=== PATIENT | female | born 1980 | race Caucasian/White ===

== ENCOUNTER 2019-02-02 12:31 | Emergency (ER) | payer OTHER, SELFPAY ==
[2019-02-02 12:40] VITALS: BP 140/97; PULSE 80; RESP 20; TEMP 36.7; O2SAT 93; BMI 58.8
--- NOTE | 2019-02-02 12:49 | ED.LOWEXIN ---
HPI - Extremity Injury (Lower) General Chief Complaint: Extremity Injury, Lower Stated Complaint: Thinks broke or twist left ankle Time Seen by Provider: 02/02/19 12:33 Source: patient and family Mode of arrival: Ambulatory Limitations: no limitations History of Present Illness HPI Narrative: 38-year-old female former smoker presents with friends and family in the chief complaint of a left ankle injury. She was walking last evening and missed a step and felt pain and swelling in her left ankle. She denies any head, neck or back pain. She has increased pain with ambulation and improvement with rest. She denies any numbness, tingling or weakness. MD complaint: ankle injury Onset (ago): hour(s) Type of Injury: inversion Place: home Severity: moderate Relieving factors: immobilization Exacerbating factors: weight bearing Context: walking Associated symptoms: snap/pop sensation, swelling and able to partially bear weight Other symptoms: none Treatments prior to arrival: cold therapy and bandage Related Data Previous Rx's Medication Instructions Recorded hydrocodone-acetaminophen 1 tab PO Q4-6H PRN #10 tab 02/02/19 Review of Systems Constitutional Constitutional: Denies chills, Denies fatigue, Denies fever(s), Denies frequent falls, Denies lethargy and Denies weakness Eyes Eyes: Denies change in vision, Denies eye discharge, Denies irritation and Denies loss of vision ENT Ears, Nose, Mouth, and Throat: Denies change in voice, Denies dizziness, Denies neck pain, Denies sore throat and Denies throat swelling Cardiovascular Cardiovascular: Denies chest pain, Denies irregular heart rhythm, Denies lightheadedness, Denies palpitations, Denies dyspnea, Denies dyspnea on exertion and Denies orthopnea Respiratory Respiratory: Denies cough, Denies dyspnea, Denies dyspnea on exertion and Denies wheezing Gastrointestinal Gastrointestinal: Denies abdominal pain, Denies change in bowel habits, Denies diarrhea, Denies nausea and Denies vomiting Genitourinary Genitourinary: Denies hematuria, Denies flank pain, Denies urinary incontinence and Denies urinary urgency Musculoskeletal Musculoskeletal: Denies back pain, Reports joint swelling, Reports limited range of motion, Denies muscle weakness, Denies neck pain, Denies numbness and Denies tingling Integumentary/Breasts Skin/Breast: Denies pruritus, Denies erythema, Denies rash and Denies wounds Neurologic Neurologic: Denies behavioral changes, Denies confusion, Denies dizziness, Denies frequent falls, Denies loss of vision, Denies numbness, Denies tingling and Denies weakness Psychiatric Psychiatric: Denies anxiety, Denies behavioral changes, Denies confusion, Denies depression, Denies homicidal ideation and Denies suicidal ideation Endocrine Endocrine: Denies fatigue, Denies flushing and Denies palpitations Hematologic/Lymphatic Hematologic/Lymphatic: Denies easy bruising Allergic/Immunologic Allergic/Immunologic: Denies urticaria, Denies throat swelling and Denies wheezing PFSH Social History Smoking Status: Never smoker Social History Smoking Status: Never smoker Exam Narrative Exam Narrative: GEN: AOx3 and in mild distress EYES: Pupils are equal, round, and reactive to light and accommodation. Extraoccular muscles are intact bilaterally. There is no subconjunctival hemorrhage or exudate. CHEST: Lungs are clear to auscultation bilaterally and free of wheezes, rales, or rhonchi. Heart rate is regular rhythm, there are no murmurs, clicks, rubs, or gallops. There is no chest wall tenderness. ABD: Abdomen is soft and nontender. There is no guarding or rebound. Bowel sounds are normal in all 4 quadrants. There is no mass or organomegaly. EXT: Full but painful range of motion of the left ankle with some swelling and tenderness to palpation over the lateral malleolus. No ligamentous laxity noted. Dorsalis pedis intact, cap refill intact, sensation intact SKIN: Warm, pink, and dry. No erythema or rash Initial Vital Signs Initial Vital Signs: Vital Signs Temperature 98.1 F 02/02/19 12:40 Pulse Rate 80 02/02/19 12:40 Respiratory Rate 20 02/02/19 12:40 Blood Pressure 140/97 H 02/02/19 12:40 Pulse Oximetry 93 02/02/19 12:40 Procedures Orthopedic Splinting/Casting Injury #1: Side: left Lower Extremity Injury Location: ankle Lower Extremity Immobilizer: posterior splint Other Orthopedic Equipment: crutches Post splinting neuro exam: intact Post splinting vascular exam: intact Placed by: Nursing Course Orders Ordered: ED Orders 02/02/19 13:15 XR ankle RT min 3V Stat Vital Signs Vital signs: Vital Signs - 8 hr 02/02/19 12:40 Temperature 98.1 F Pulse Rate 80 Pulse Rate [Left Dorsalis Pedis] 80 Respiratory Rate 20 Blood Pressure 140/97 H Pulse Oximetry 93 MDM - Extremity Injury (Lower) Imaging Data Ankle Xray: Radiologist's impression: Inocencia Maciel 38 F [address] [address] XRay Report Signed Patient: Inocencia Maciel MMR#: [id number] : 1980Acct:[id number] Age/Sex: 38 / FDate of Service: 02/02/19 Loc: ED Accession Number: [id number] Procedure: XR ankle RT min 3V Ordering Provider: Pradip Castlilo D.O. PROCEDURE: XR ANKLE RT MIN 3V INDICATIONS: twisted ankle pain with ambulation TECHNIQUE: 3 views of the ankle were acquired. COMPARISON: None. FINDINGS: Bones: No definite acute fractures or dislocations. There are small corticated ossicles inferior to the lateral malleolus compatible with prior avulsion fractures. Ankle mortise is normally aligned. No suspicious bony lesions. Soft tissues: No tibiotalar joint effusion. Achilles tendon appears intact. IMPRESSION: 1. No definite acute fracture or dislocation. Probable chronic avulsion fracture inferior to the lateral malleolus demonstrated. Dictated by: Srinivasa Galindo M.D. on 02/02/2019 at 12:44 Approved by: Srinivasa Galindo M.D. on 02/02/2019 at 12:46 Discharge Plan Departure Patient Disposition: Home Clinical Impression: Ankle sprain and strain Instructions: DI for Ankle Sprain Activity Restrictions/Additional Instructions: *You have been diagnosed with [ ankle sprain ] *What to do: *Take medications as directed *Follow up with your primary care provider in 2-3 days, call for an appointment. Let them know you were seen in the Emergency Department and that we ask that you be seen in follow up *Return to ER if you should have any new, worsening or concerning symptoms Prescriptions: New hydrocodone-acetaminophen 5-325 mg tablet 1 tab PO Q4-6H PRN (Reason: pain) Qty: 10 RF: 0
--- NOTE | 2019-02-02 13:15 | DI.RAD.S_ITS ---
PROCEDURE: XR ANKLE RT MIN 3V INDICATIONS: twisted ankle pain with ambulation TECHNIQUE: 3 views of the ankle were acquired. COMPARISON: None. FINDINGS: Bones: No definite acute fractures or dislocations. There are small corticated ossicles inferior to the lateral malleolus compatible with prior avulsion fractures. Ankle mortise is normally aligned. No suspicious bony lesions. Soft tissues: No tibiotalar joint effusion. Achilles tendon appears intact. IMPRESSION: 1. No definite acute fracture or dislocation. Probable chronic avulsion fracture inferior to the lateral malleolus demonstrated. Dictated by: Srinivasa Galindo M.D. on 02/02/2019 at 12:44 Approved by: Srinivasa Galindo M.D. on 02/02/2019 at 12:46
[2019-02-02 14:45] VITALS: BP 132/78; PULSE 66; RESP 18; O2SAT 100
== END 2019-02-02 14:51 | disposition home or self-care (01) ==
PROVIDERS: Emergency Provider Emergency Medicine
DX: S93.402A Sprain of unspecified ligament of left ankle, initial encounter (principal); S96.912A Strain of unspecified muscle and tendon at ankle and foot level, left foot, initial encounter
CPT/HCPCS: 29515; 73610; 99283